=== PATIENT | female | born 1990 | race Caucasian/White ===

== ENCOUNTER 2017-09-11 22:01 | Emergency (ER) | payer SELFPAY ==
[~2017-09-11] VITALS: Ht 167.6 cm; Wt 111.4 kg
[2017-09-11 22:27] VITALS: Ht 167.6 cm; Wt 111.4 kg
[2017-09-11] MEDS ORDERED: MEDROL DOSE PACK4 MG PO (22:42)
[2017-09-11] MEDS ORDERED: ZPAK PO (22:42)
[2017-09-11 23:40] VITALS: BP 145/78
== END 2017-09-11 23:34 | disposition home or self-care (01) ==
LOC: D.ER 22:01
DX: R05 Cough (principal); R09.89 Other specified symptoms and signs involving the circulatory and respiratory systems; F17.200 Nicotine dependence, unspecified, uncomplicated